=== PATIENT | female | born 1965 | race Caucasian/White ===

== ENCOUNTER 2017-03-26 06:14 | Day surgery (SDC) | payer OTHER ==
[~2017-03-26] VITALS: Ht 147.3 cm; Wt 56.0 kg
[~2017-03-26 06:14] MED LIST: ACET500T98; LORA-407
[2017-03-26 06:54] VITALS: Ht 147.3 cm; Wt 56.0 kg
[2017-03-26 07:23] VITALS: BP 146/76; RESP 12
[2017-03-26] MEDS ORDERED: NO MEDS (07:25)
[2017-03-26] MEDS ORDERED: FENTAnyl 50 MCG/ML VIAL ONE (08:21)
[2017-03-26] MEDS ORDERED: MIDAZOLAM 1 MG/ML 2 ML INJ ONE ×2 (08:21)
[2017-03-26 08:42] VITALS: BP 137/77; RESP 12
--- NOTE | 2017-03-29 08:43 | GILP ---
DATE OF PROCEDURE: 03/26/2017 PROCEDURE PERFORMED: Colonoscopy. SURGEON: Tesfaye Lamb MD PREOPERATIVE DIAGNOSIS: Screening colonoscopy. POSTOPERATIVE DIAGNOSIS: 1. Colonoscopy all the way to the cecum. 2. Internal hemorrhoids. 3. No colon neoplasm was identified. INDICATION: The patient is a 51-year-old female patient, who was scheduled for screening colonoscopy. The procedure and possible complications were well explained to the patient. The patient understood and consented to the procedure. DESCRIPTION OF PROCEDURE: Under the influence of fentanyl and Versed, the colonoscope was carefully introduced in the rectum, and under direct vision it was advanced all the way to the cecum. FINDINGS: The patient had internal hemorrhoids. No colon neoplasm was identified. She tolerated the procedure very well and there was no complication from the procedure. At the end of the procedure she was awake with stable vital signs and she was discharged to the care of his family. IMPRESSION: Colonoscopy all the way to the cecum. Internal hemorrhoids. No colon neoplasm was identified. PLAN: Screening colonoscopy in 10 years. Dictated By: MD RUPAL Petty/analyt/bjc /Document#: [id number]
== END 2017-03-26 12:14 | disposition home or self-care (01) ==
LOC: GIL 06:14
PROVIDERS: ATTEND Internal Medicine Gastroenterology
DX: Z12.11 Encounter for screening for malignant neoplasm of colon (principal); K64.8 Other hemorrhoids
CPT/HCPCS: 45378; J2250; J3010; Z7610